=== PATIENT | female | born 1955 | race Caucasian/White ===

== ENCOUNTER 2021-04-16 06:16 | Inpatient (IN) ==
[2021-04-09 12:10] LABS: Basophils # 0.1 10*3/uL (0.0-0.2); Eosinophils # 0.3 10*3/uL (0.0-0.87); Eosinophils % 2.7 % (0.00-10.9); Hematocrit 39.1 VOL% (35.7-47.0); Hemoglobin 12.5 GM/DL (12.0-16.0); Immature Granulocytes % 0.6 %; Immature Granulocytes Absolute 0.07 #; Lymphocytes # 1.6 10*3/uL (1.4-4.0); Lymphocytes % 13.7 % (21.3-54.2); Mean Corpuscular Volume 89.5 FL (87-102); Mean Platelet Volume 12.1 FL (9.6-12.0); Monocytes % 8.6 % (1.7-12.7); Neutrophils % 73.4 % (38.7-73.9); Platelet Count 250 T/CUMM (130-400); Red Blood Count 4.37 MC/CUMM (3.8-5.5); Red Cell Distribution Width 14.6 % (9.3-17.3); White Blood Count 11.7 T/CUMM (4-12)
[2021-04-09 12:21] LABS: PT Patient Result 10.8 SECS (10.5-12.0)
[2021-04-09 12:30] LABS: Albumin 3.5 G/DL (3.4-5.0); Bilirubin,Total 1.6 MG/DL (0.20-1.00); Calcium 9.3 MG/DL (8.5-10.1); Osmolality,Calculated 281.5 MOS/KG (273-304); Potassium 4.8 MMOL/L (3.5-5.1); Total Protein 7.4 G/DL (6.4-8.2)
[2021-04-16] MEDS: SODIUM CHLORIDE 0.45% 1,000 ML IV SCH (07:20)
[2021-04-16] MEDS ORDERED: HEPARIN/NACL 0.9% 2 UNITS/ML 6,000 UNIT/3,000 ML BAG IV ONE (07:59)
[2021-04-16] MEDS ORDERED: NITROGLYCERIN DRIP 50 MG/250 ML BOTTLE IV ONE (09:32)
[2021-04-16] MEDS ORDERED: HEPARIN/NACL 0.9% 2 UNITS/ML 2,000 UNIT/1,000 ML BAG IV ONE (10:59)
[2021-04-16] MEDS ORDERED: HETASTARCH IV ONE (11:59)
[2021-04-16] MEDS ORDERED: [UNRECOGNIZED DRUG - OTHER] IV ONE (11:59)
[2021-04-16] MEDS ORDERED: ALBUMIN 5% 12.5 GM/250 ML VIAL IV ONE (11:59)
[2021-04-16 12:02] LABS: ABG Base Excess -5.2 MMOL/L (-2.5-2.5); ABG HCO3 20.1 MMOL/L (20-26); ABG Oxygen Saturation 99.1 % (95-100); ABG PCO2 37.6 MM HG (35-48); ABG PH 7.336 (7.35-7.45); ABG TCO2 18.6 MMOL/L (23-27); Glucose Heart Surgery 144 MG/DL (74-106); Hematocrit Heart Surgery 28.4 PERCENT (37-47); Hemoglobin Heart Surgery 9.2 G/DL (12.0-16.0); Potassium Heart/CVR 4.7 MMOL/L (3.5-5.1)
[2021-04-16] MEDS ORDERED: oxyCODONE/ACETAMINOPHEN 5-325 MG TABLET PO PRN (12:58)
[2021-04-16] MEDS ORDERED: HYDROmorphone 1 MG/1 ML SYRINGE IV PRN ×2 (13:06→13:47)
[2021-04-16] MEDS ORDERED: propofoL 200 MG/20 ML VIAL IV ONE (13:29)
[2021-04-16] MEDS ORDERED: NEOSTIGMINE 10 MG/10 ML VIAL ONE (13:29)
[2021-04-16] MEDS ORDERED: LIDOCAINE 2% 5 ML VIAL ONE (13:29)
[2021-04-16] MEDS ORDERED: HEPARIN 10,000 UNIT/10 ML VIAL ONE (13:30)
[2021-04-16] MEDS ORDERED: SEVOFLURANE 1 UNIT/15 MINUTE INH ONE (13:30)
[2021-04-16] MEDS ORDERED: DEXAMETHASONE 4 MG/1 ML VIAL ONE (13:30)
[2021-04-16] MEDS ORDERED: HEPARIN/NACL 0.9% 2 UNITS/ML 1,000 UNIT/500 ML BAG IV ONE (13:30)
[2021-04-16] MEDS ORDERED: ONDANSETRON 4 MG/2 ML VIAL ONE (13:30)
[2021-04-16] MEDS ORDERED: MIDAZOLAM 2 MG/2 ML VIAL ONE (13:30)
[2021-04-16] MEDS ORDERED: fentaNYL 100 MCG/2 ML VIAL ONE (13:30)
[2021-04-16] MEDS ORDERED: ACETAMINOPHEN INJ 1,000 MG/100 ML VIAL IV ONE (13:30)
[2021-04-16] MEDS ORDERED: ETOMIDATE 40 MG/20 ML VIAL IV ONE (13:30)
[2021-04-16] MEDS ORDERED: GLYCOPYRROLATE 0.4 MG/2 ML VIAL ONE (13:30)
[2021-04-16] MEDS ORDERED: LACTATED RINGERS 1,000 ML IV ONE (13:31)
[2021-04-16] MEDS ORDERED: PHENYLEPHRINE DRIP 20 MG/250 ML PREMIX IV ONE (13:31)
[2021-04-16] MEDS ORDERED: ROCURONIUM 50 MG/5 ML VIAL IV ONE (13:31)
[2021-04-16] MEDS ORDERED: SODIUM CHLORIDE 0.9% 2,000 ML IV ONE (13:31)
[2021-04-16 13:40] LABS: Hematocrit 22.7 VOL% (35.7-47.0); Hemoglobin 7.1 GM/DL (12.0-16.0)
[2021-04-16] MEDS ORDERED: ONDANSETRON 4 MG/2 ML VIAL IV PRN (13:47)
[2021-04-16 13:50] LABS: Calcium 6.5 MG/DL (8.5-10.1); Osmolality,Calculated 283.5 MOS/KG (273-304); Potassium 4.9 MMOL/L (3.5-5.1)
[2021-04-16] MEDS ORDERED: HYDROmorphone 2 MG/1 ML VIAL ONE (13:50)
[2021-04-16] MEDS: LACTATED RINGERS 1,000 ML IV SCH ×2 (14:31→21:00)
[2021-04-16 15:19] LABS: Hematocrit 24.1 VOL% (35.7-47.0); Hemoglobin 7.5 GM/DL (12.0-16.0)
[2021-04-16] MEDS ORDERED: ALBUTEROL 2.5 MG/3 ML NEB RESP TX PRN (15:20)
[2021-04-16] MEDS ORDERED: NITROPRUSSIDE 100 MG in DEXTROSE 5% 246 ML IV PRN (17:49)
[2021-04-16] MEDS ORDERED: NITROPRUSSIDE 50 MG/2 ML VIAL ONE (17:51)
[2021-04-16] MEDS: ONDANSETRON 4 MG/2 ML VIAL IV PRN (20:05)
[2021-04-17] MEDS: INSULIN REGULAR 100 UNIT/ML SUBCUT SCH ×4 (00:37→17:59)
[2021-04-17] MEDS: LACTATED RINGERS 1,000 ML IV SCH ×2 (01:05→06:23)
[2021-04-17] MEDS: ONDANSETRON 4 MG/2 ML VIAL IV PRN ×2 (01:55→08:12)
[2021-04-17 06:17] LABS: Basophils % 0.1 % (0.0-0.8); Hematocrit 27.7 VOL% (35.7-47.0); Hemoglobin 9.2 GM/DL (12.0-16.0); Immature Granulocytes % 0.6 %; Lymphocytes # 0.5 10*3/uL (1.4-4.0); Lymphocytes % 3.4 % (21.3-54.2); Mean Corpuscular HGB Conc 33.2 GM/DL (32-36); Mean Platelet Volume 11.5 FL (9.6-12.0); Monocytes % 8.5 % (1.7-12.7); Neutrophils % 87.4 % (38.7-73.9); Platelet Count 177 T/CUMM (130-400); Red Blood Count 3.22 MC/CUMM (3.8-5.5); Red Cell Distribution Width 15.4 % (9.3-17.3); White Blood Count 15.9 T/CUMM (4-12)
[2021-04-17 06:30] LABS: Potassium 4.3 MMOL/L (3.5-5.1)
[2021-04-17 06:42] LABS: Hypochromia 1+; Lymphocytes 5 % (20-55); Microcytosis 1+; Platelet Estimate Adequate; Segmented Neutrophils 89 % (50-85); Total Cells Counted 100
[2021-04-17] MEDS ORDERED: LACTATED RINGERS 1,000 ML IV SCH ×2 (08:30→13:35)
[2021-04-17] MEDS: SODIUM CHLORIDE 0.45% 1,000 ML IV SCH (09:41)
[2021-04-17] MEDS: PANTOPRAZOLE 40 MG TABLET PO SCH (09:43)
[2021-04-17] MEDS: metFORMIN 500 MG TABLET PO SCH ×2 (11:23→20:55)
[2021-04-17] MEDS: lisinopriL 20 MG TABLET PO SCH (11:24)
[2021-04-17] MEDS: amLODIPine 5 MG TABLET PO SCH (11:24)
[2021-04-17] MEDS: UMECLIDINIUM VILANTEROL INH SCH (11:53)
[2021-04-17] MEDS: ACTUATION BL INH SCH (11:53)
[2021-04-17] MEDS: METOCLOPRAMIDE 10 MG/2 ML VIAL IV SCH ×2 (12:09→18:04)
[2021-04-17] MEDS: ATORVASTATIN 40 MG TABLET PO SCH (20:55)
[2021-04-18] MEDS: METOCLOPRAMIDE 10 MG/2 ML VIAL IV SCH ×4 (00:55→17:46)
[2021-04-18] MEDS: INSULIN REGULAR 100 UNIT/ML SUBCUT SCH ×4 (00:55→17:46)
[2021-04-18 03:56] LABS: Basophils % 0.1 % (0.0-0.8); Hematocrit 26.9 VOL% (35.7-47.0); Hemoglobin 8.3 GM/DL (12.0-16.0); Immature Granulocytes % 0.8 %; Immature Granulocytes Absolute 0.16 #; Lymphocytes # 1.1 10*3/uL (1.4-4.0); Lymphocytes % 5.6 % (21.3-54.2); Mean Corpuscular HGB Conc 30.9 GM/DL (32-36); Mean Corpuscular Volume 87.6 FL (87-102); Mean Platelet Volume 11.4 FL (9.6-12.0); Monocytes % 12.2 % (1.7-12.7); Neutrophils % 81.3 % (38.7-73.9); Platelet Count 157 T/CUMM (130-400); Red Blood Count 3.07 MC/CUMM (3.8-5.5); White Blood Count 20.3 T/CUMM (4-12)
[2021-04-18 04:16] LABS: Calcium 7.8 MG/DL (8.5-10.1)
[2021-04-18 04:32] LABS: Potassium 3.8 MMOL/L (3.5-5.1)
[2021-04-18 04:53] LABS: Anisocytosis 1+; Band Neutrophils 15 % (0-10); Lymphocytes 4 % (20-55); Ovalocytes Few; Segmented Neutrophils 70 % (50-85); Total Cells Counted 100
[2021-04-18] MEDS: LACTATED RINGERS 1,000 ML IV SCH ×2 (05:50)
[2021-04-18] MEDS: ACTUATION BL INH SCH (08:34)
[2021-04-18] MEDS: UMECLIDINIUM VILANTEROL INH SCH (08:34)
[2021-04-18] MEDS: amLODIPine 5 MG TABLET PO SCH (08:34)
[2021-04-18] MEDS: metFORMIN 500 MG TABLET PO SCH ×2 (08:34→20:44)
[2021-04-18] MEDS: PANTOPRAZOLE 40 MG TABLET PO SCH (08:34)
[2021-04-18] MEDS: lisinopriL 20 MG TABLET PO SCH (08:34)
[2021-04-18] MEDS: ATORVASTATIN 40 MG TABLET PO SCH (20:45)
[2021-04-18] MEDS ORDERED: amLODIPine 5 MG TABLET PO ONE (21:54)
[2021-04-19] MEDS: INSULIN REGULAR 100 UNIT/ML SUBCUT SCH ×4 (00:29→17:49)
[2021-04-19] MEDS ORDERED: ACETAMINOPHEN 325 MG TABLET PO PRN (06:15)
[2021-04-19] MEDS: PANTOPRAZOLE 40 MG TABLET PO SCH (08:20)
[2021-04-19] MEDS: ACTUATION BL INH SCH (08:20)
[2021-04-19] MEDS: UMECLIDINIUM VILANTEROL INH SCH (08:20)
[2021-04-19] MEDS: metFORMIN 500 MG TABLET PO SCH ×2 (08:20→21:31)
[2021-04-19] MEDS: lisinopriL 20 MG TABLET PO SCH (08:20)
[2021-04-19] MEDS: amLODIPine 10 MG TABLET PO SCH (08:20)
[2021-04-19] MEDS: ATORVASTATIN 40 MG TABLET PO SCH (21:31)
[2021-04-20] MEDS: INSULIN REGULAR 100 UNIT/ML SUBCUT SCH ×3 (01:19→12:48)
[2021-04-20] MEDS: LACTATED RINGERS 1,000 ML IV SCH (08:35)
[2021-04-20] MEDS: metFORMIN 500 MG TABLET PO SCH (09:14)
[2021-04-20] MEDS: lisinopriL 20 MG TABLET PO SCH (09:15)
[2021-04-20] MEDS: PANTOPRAZOLE 40 MG TABLET PO SCH (09:15)
[2021-04-20] MEDS: amLODIPine 10 MG TABLET PO SCH (09:15)
[2021-04-20] MEDS: ACTUATION BL INH SCH (09:23)
[2021-04-20] MEDS: UMECLIDINIUM VILANTEROL INH SCH (09:23)
[2021-04-20 11:58] VITALS: BP 170/65
== END 2021-04-20 13:08 | disposition home or self-care (01) | DRG 220 ==
LOC: N.OR 06:16 → N.SDSINP 06:20 → EDSTATUS 07:00 → N.ICU 15:01 → N.TELES 04-19 22:22
PROVIDERS: ADMIT Surgery; ATTEND Surgery
PROC: IRERAAA (2021-04-16 07:30)